=== PATIENT | female | born 1930 | race Caucasian/White ===

== ENCOUNTER 2017-11-25 12:02 | Day surgery (SDC) | payer OTHER ==
[~2017-11-25] VITALS: Ht 157.5 cm; Wt 56.7 kg
[~2017-11-25 12:02] MED LIST: CLARITIN,ALAVAR10 MG PO; DIGOXIN125 MCG PO; HYDROCODON-ACE1 EAC9 PO; IRON325 M1 PO; LASIX20 MG PO; LIPITOR20 MG PO; NORVASC2.5 MG PO; PRILOSEC20 MG PO; TYLENOL EXTRA500 MG PO; VITAMIN D5000 UNI1 PO
[2017-11-25 12:56] VITALS: BP 138/77
[2017-11-25 20:43] VITALS: BP 104/63
[2017-11-26 00:50] VITALS: BP 91/49
[2017-11-26 03:14] VITALS: BP 105/58
[2017-11-26 07:41] VITALS: BP 105/59
[2017-11-26 09:23] VITALS: BP 121/61
[2017-11-26 11:45] VITALS: BP 141/68
[2017-11-26 15:55] VITALS: BP 100/55
[2017-11-26] MEDS ORDERED: TIZANIDINE HCL2 MG PO (17:45)
[2017-11-26] MEDS ORDERED: HYDROCODON-ACE1 EAC9 PO (17:45)
== END 2017-11-26 19:11 | disposition home or self-care (01) ==
LOC: SDC 12:02 → 2SOUTH 16:39 → ENRESERV 17:26 → 3EAST 19:31
PROC: 01NB0ZZ Release Lumbar Nerve, Open Approach (ICD-10-PCS; principal; 2017-11-25)
DX: M48.062 Spinal stenosis, lumbar region with neurogenic claudication (principal); M51.16 Intervertebral disc disorders with radiculopathy, lumbar region; I73.9 Peripheral vascular disease, unspecified; I10 Essential (primary) hypertension; I25.10 Atherosclerotic heart disease of native coronary artery without angina pectoris; Z87.891 Personal history of nicotine dependence
CPT/HCPCS: 72020; 76000; G0378; J1170; J2405; J2930; J3010; J3370; J3480; Q0175; S0020